=== PATIENT | male | born 1955 | race Caucasian/White ===

== ENCOUNTER → 2023-05-08 11:57 | Outpatient (CLI) | payer MEDICARE, OTHER, SELFPAY ==
--- NOTE | 2023-05-08 | DI.US.S_ITS ---
PROCEDURE: US ABD AORTA ANEURYSM SCREEN INDICATIONS: Cardiac murmur/AAA screening TECHNIQUE: Real time scanning was performed of the aorta and iliac arteries, with image documentation. COMPARISON: None. FINDINGS: Aorta: Proximal aortic diameter measures 2.1 cm. Mid-aorta measures 1.7 cm. Distal aortic diameter is 1.7 cm. Iliac arteries: Right common iliac artery measures 1.2 cm. Left common iliac artery measures 1.3 cm. IMPRESSION: No abdominal aortic or proximal common iliac artery aneurysm. Dictated by: Mike GUERRA Interpreted: Isaias Garnett MD on 05/08/2023 at 14:38 Transcribed by: HILDA on 05/08/2023 at 14:39 Approved by: Isaias Garnett M.D. on 05/08/2023 at 16:43
--- NOTE | 2023-05-08 | DI.ECHO.S_ITS ---
[facility]---------+ [facility] +---------+ : : [address] : [address] : : : : [id number] : : : : Phone: [phone]---------+ Echocardiogram Report + + :Name: YONY OSBORN Study Date: 05/08/2023 Height: 70 in : :[facility] ReadingLocation: Weight: 240 lb : : Gender: Male BSA: 2.3 m2 : :: 1955 Age: 68 yrs BP: 147/98 mmHg: :Reason For Study: Cardiac Murmur : :Ordering Physician: YANA SPEAR : :E Performed By: Miriam Toledo : :Referring: YANA SPEAR E : + + Interpretation Summary 1) Normal left ventricular thickness, size, wall motion, and systolic function (EF 55-60%). 2) Normal right ventricular size and function. 3) Aortic valve is sclerotic but no significant valvular stenoses or regurgitation present. 4) No prior Echo available for comparison. Procedure: A two-dimensional transthoracic echocardiogram with color flow and Doppler was performed. The study quality was technically adequate. There is no prior echocardiogram noted for this patient. The patient was in normal sinus rhythm during the exam. Left Ventricle: The left ventricle is normal in size and wall thickness. The ejection fraction is estimated to be 55-60%. Left ventricular systolic function appears normal without focal wall motion abnormalities. Diastolic parameters suggest probable normal left ventricular diastolic function and normal filling pressures. Right Ventricle: The right ventricle is normal in size and function. Atria: The left atrial size is normal. Right atrial size is normal. There is no Doppler evidence for an interatrial shunt. Mitral Valve: The mitral valve is normal. There is no mitral valve stenosis. There is trace mitral regurgitation. Aortic Valve: The aortic valve is not well visualized. There is mild aortic valve sclerosis. There is no aortic valve stenosis. No aortic regurgitation is present. Tricuspid Valve: The tricuspid valve is normal. There is no tricuspid stenosis. There is trace tricuspid regurgitation. Pulmonic Valve: The pulmonic valve is not well visualized. There is no pulmonic valvular stenosis. There is no pulmonic valvular regurgitation. Great Vessels: The aortic root is normal size. The ascending aorta is at the upper limits of normal in size. The pulmonary artery is normal size. The IVC is of normal diameter and collapses greater than 50% with a sniff. This suggests a low right atrial pressure of 3 mm Hg. Pericardium/ Pleura There is no pericardial effusion. There is no pleural effusion. MMode/2D Measurements & Calculations LVIDd: 5.3 cm LVOT diam: 2.3 cm LVIDs: 4.4 cm Ao root diam: 3.4 cm FS: 17.0 % asc Aorta Diam: 3.6 cm IVSd: 0.90 cm LVPWd: 1.0 cm LV cabrera. diameter/BSA (cm/m^2): 2.3 LV sys. diameter/BSA (cm/m^2): 2.0 LA A2 area: 17.2 cm2 RA long axis: 5.4 cm LA A4 area: 13.1 cm2 RA area: 14.2 cm2 LA length (vol): 5.0 cm RA vol: 31.5 ml LA vol: 38.6 ml RA : 14.0 ml/m2 LA vol index: 17.1 ml/m2 RVD1 (basal): 3.3 cm LVLs ap4: 6.3 cm LVLd ap2: 7.0 cm TAPSE_phl: 2.1 cm LVLs ap2: 5.8 cm Doppler Measurements & Calculations Ao V2 max: 154.5 cm/sec LVOT Max Charles: 127.0 cm/sec Ao V2 mean: 106.0 cm/sec LV V1 max P.5 mmHg Ao max P.0 mmHg LV V1 VTI: 25.7 cm Ao mean P.0 mmHg LANDON(I,D): 3.5 cm2 Ao V2 VTI: 30.9 cm LANDON(V,D): 3.4 cm2 sev ratio: 0.83 LANDON indexed to BSA (cm^2/m^2): 1.5 MV E max charles: 60.3 cm/sec PA V2 max: 132.0 cm/sec MV A max charles: 79.9 cm/sec PA V2 mean: 85.1 cm/sec MV E/A: 0.75 PA mean P.0 mmHg Med Peak E' Charles: 6.2 cm/sec PA pr(Accel): 32.6 mmHg E/E' med: 9.8 Lat Peak E' Charles: 7.0 cm/sec E/E' lat: 8.6 E/e' average: 9.2 MV dec time: 0.20 sec SV(LVOT): 106.8 ml AV VR_phl: 0.82 LANDON(VTI)/BSA_phl: 1.5 Reading Physician:10:24 PM
== END ==
PROVIDERS: PCP Family Medicine; Referring Provider Family Medicine; Visit Provider Family Medicine
DX: I35.8 Other nonrheumatic aortic valve disorders (principal); R01.1 Cardiac murmur, unspecified; Z12.2 Encounter for screening for malignant neoplasm of respiratory organs; Z87.891 Personal history of nicotine dependence
CPT/HCPCS: 76706; 93306

== ENCOUNTER → 2024-05-06 12:34 | Outpatient (CLI) | payer MEDICARE, OTHER, SELFPAY ==
--- NOTE | 2024-05-06 12:35 | DI.US.S_ITS ---
PROCEDURE: US ABDOMEN COMPLETE INDICATIONS: ELEVATED LFTS, FATIGUE TECHNIQUE: Real-time scanning was performed of the abdominal and retroperitoneal organs, with image documentation. COMPARISON: None. FINDINGS: Liver: Measures 19 cm with with echogenicity similar to adjacent right kidney, unremarkable. Main portal vein 15.6 mm in diameter, hepatopetal flow. Note is made of a 1.8 x 2.3 x 2.0 cm cystic structure with posterior acoustic enhancement, possibly multi-septated. Otherwise liver is homogeneous in echogenicity. Gallbladder: No stones sludge, cholelithiasis. Normal gallbladder wall thickness. No pericholecystic fluid. Biliary ducts: Intrahepatic bile ducts are non-dilated. Extrahepatic bile duct caliber measures 4.5 mm. Normal is 6-7 mm or less in diameter, or 10 mm or less post-cholecystectomy. Pancreas: Visualized portions of the pancreas are sonographically normal. Spleen: Spleen is normal in size and homogeneous in echotexture. Kidneys: Kidneys are normal in size and echotexture. Right kidney measures 11.7 cm long; left kidney measures 12.1 cm long. No hydronephrosis or nephrolithiasis. No solid masses. Aorta: Visualized aorta is normal in caliber at less than 3 cm. Iliacs: Proximal common iliac arteries are normal in caliber at less than 2.5 cm. IVC: Intrahepatic inferior vena cava is patent. Miscellaneous: No free abdominal fluid. IMPRESSION: Multiseptated cystic structure of the liver measuring 2.3 cm most likely benign, but if clinical suspicion persists then CT with liver mass protocol may provide additional diagnostic benefit. Dictated by: Vahe Delarosa M.D. on 05/07/2024 at 14:46 Approved by: Vahe Delarosa M.D. on 05/07/2024 at 15:10
== END ==
PROVIDERS: PCP Family Medicine; Referring Provider Physician Assistant; Visit Provider Physician Assistant
DX: K76.9 Liver disease, unspecified (principal); D69.6 Thrombocytopenia, unspecified; R74.8 Abnormal levels of other serum enzymes; R53.81 Other malaise
CPT/HCPCS: 76700

== ENCOUNTER → 2024-09-22 13:25 | Outpatient (CLI) | payer MEDICARE, OTHER, SELFPAY | LOC: WC 13:29 | PROVIDERS: PCP Family Medicine; Referring Provider Physician Assistant; Visit Provider Surgery | DX: L98.492 Non-pressure chronic ulcer of skin of other sites with fat layer exposed (principal); R60.0 Localized edema; E11.622 Type 2 diabetes mellitus with other skin ulcer; D64.9 Anemia, unspecified; I10 Essential (primary) hypertension | CPT/HCPCS: 11042; 87070; 87075; 87077; 87186; 87205; 99203; 99213 ==

== ENCOUNTER → 2024-10-06 13:47 | Outpatient (CLI) | payer MEDICARE, OTHER, SELFPAY | LOC: WC 13:51 | PROVIDERS: PCP Family Medicine; Referring Provider Physician Assistant; Visit Provider Surgery | DX: L98.492 Non-pressure chronic ulcer of skin of other sites with fat layer exposed (principal); R60.0 Localized edema | CPT/HCPCS: 99213 ==

== ENCOUNTER → 2024-10-18 11:16 | Outpatient (CLI) | payer MEDICARE, OTHER, SELFPAY | PROVIDERS: PCP Family Medicine; Referring Provider Physician Assistant; Visit Provider Surgery | DX: L98.492 Non-pressure chronic ulcer of skin of other sites with fat layer exposed (principal); R60.0 Localized edema | CPT/HCPCS: 99212; 99213 ==

== ENCOUNTER → 2024-11-03 15:40 | Outpatient (CLI) | payer MEDICARE, OTHER, SELFPAY ==
--- NOTE | 2024-11-03 | OV.WND_ITS ---
PROGRESS NOTE DETAILS PATIENT NAME: YONY OSBORN PATIENT NUMBER: [id number] CLINICIAN: LEA COOK R.N. PATIENT DATE OF : 1955 PHYSICIAN / [employer]ULTS: TINA BARBA PATIENT SUBJECTIVE CHIEF COMPLAINT THIS INFORMATION WAS OBTAINED FROM THE PATIENT. ELBOW. GENERAL NOTES INFECTIOUS WOUND OF RIGHT ELBOW. ALLERGIES NO KNOWN DRUG ALLERGIES HPI THIS INFORMATION WAS OBTAINED FROM THE PATIENT. THE FOLLOWING HPI ELEMENTS WERE DOCUMENTED FOR THE PATIENT'S WOUND: LOCATION: R ELBOW DURATION: 04/05/24 CONTEXT: INFECTIOUS THE PATIENT IS A 69-YEAR-OLD MALE WITH PRIOR HISTORY OF HAVING TIA'S WHO RETURNS TODAY FOR FOLLOW UP OF NONHEALING ULCER OF THE RIGHT ELBOW THAT 1ST DEVELOPED AFTER HE FELL AND INJURED HIS ELBOW IN MARCH 2024. THE PATIENT IS RECEIVING DRESSING CHANGES WITH IODOFLEX AND COMPLETED A COURSE OF DOXYCYCLINE. THE PATIENT REPORTS THAT THE ULCER STILL HAS MILD TENDERNESS BUT HE HAS NOT NOTED ANY REDNESS OR DRAINAGE NOR HAS HE HAD ANY FEVER OR CHILLS. THE PATIENT REPORTS A GOOD APPETITE AND DENIES HAVING ANY OTHER RECENT CHANGES IN HIS OVERALL HEALTH. HE DOES NOT SMOKE CIGARETTES. THE PATIENT DOES NOT HAVE ANY PRIOR HISTORY OF NONHEALING WOUNDS. ON EXAM TODAY THE ULCER IS HEALED. LABS: 09/22/24: CULTURES GREW STAPHYLOCOCCUS LUGDUNENSIS FAMILY HISTORY THIS INFORMATION WAS OBTAINED FROM THE PATIENT. CANCER- MOTHER, FATHER DIABETES- MOTHER HEART DISEASE- FATHER SOCIAL HISTORY THIS INFORMATION WAS OBTAINED FROM THE PATIENT. FORMER SMOKER ALCOHOL USE MARITAL STATUS: YONY OSBORN [id number] 1955 RETIRED MEDICAL HISTORY THIS INFORMATION WAS OBTAINED FROM THE CHART, PATIENT. 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 YES? COMPLETE ALL QUESTIONS.: YES LOCATION OF CANCER: SKIN SURGICAL HISTORY THIS INFORMATION WAS OBTAINED FROM THE PATIENT. PATIENT HAS A SURGICAL HISTORY OF: SKIN CANCER REMOVAL- REVIEW OF SYSTEMS (ROS) THIS INFORMATION WAS OBTAINED FROM THE PATIENT. COMPLAINTS AND SYMPTOMS PATIENT COM PLAINS OF: MUSCULOSKELETAL: JOINT SWELLING PRIOR WOUND HISTORY: DRAINAGE PATIENT DENIES COM PLAINTS OR SY M PTOM S RELATED TO: CARDIOVASCULAR (CENTRAL): CHEST PAIN, DYSPNEA ON EXERTION CONSTITUTIONAL SYMPTOMS (GENERAL HEALTH): CHILLS, FEVER, LOSS OF APPETITE PRIOR WOUND HISTORY: BLEEDING, ERYTHEMA, MALODOR, PAIN RESPIRATORY: COUGH, SHORTNESS OF BREATH OBJECTIVE YONY OSBORN [id number] 1955 VITALS HEIGHT/LENGTH: 71 IN (180.34 CM), WEIGHT: 490.6 LBS (223 KGS), BMI: 68.4, TEMPERATURE: 97.5 ?F (36.39 ?C), PULSE: 67 BPM, RESPIRATORY RATE: 16 BREATHS/MIN, BLOOD PRESSURE: 117/77 MMHG, PULSE OXIMETRY: 98 %. PHYSICAL EXAM CONSTITUTIONAL: VITAL SIGNS REVIEWED AND NOTED. WELL DEVELOPED, WELL NOURISHED, AND IN NO ACUTE DISTRESS. ALERT AND ORIENTED X3. RESPIRATORY: EVEN RESPIRATIONS WITHOUT USE OF ACCESSORY MUSCLES. NO INTERCOASTAL RETRACTIONS NOTED. EVEN AND NON LABORED RESPIRATION. INTEGUMENTARY (HAIR, SKIN): NO ERYTHEMA. NO SWELLING OR TENDERNESS. SEE WOUND ASSESSMENT. SKIN WARM AND DRY. NO RASHES. NEUROLOGICAL: SENSATION: SYMMETRIC FUNCTION BY INFORMAL OBSERVATION. PSYCHIATRIC: ORIENTATION TO TIME, PLACE AND PERSON: NORMAL AFFECT WITH NORMAL THOUGHT PATTERN. LOWER EXTREMITY ASSESSMENT ASSESSMENT NOT PERFORMED FOR DOCUMENTED REASONS. GENERAL NOTES NO WOUND ON LOWER EXTREMITY. WOUND ASSESSMENT(S) WOUND #1 RIGHT ELBOW IS A CHRONIC FULL THICKNESS INFECTIOUS ACQUIRED ON 04/05/2024 AND HAS RECEIVED AN OUTCOME OF HEALED - NO NEW WOUND(S). INITIAL WOUND ENCOUNTER MEASUREMENTS ARE 0CM LENGTH X 0CM WIDTH WITH NO MEASURABLE DEPTH, WITH AN AREA OF 0 SQ CM.INITIAL WOUND ENCOUNTER PREVIOUS MEASUREMENTS FROM 10/18/2024 ARE 0.1CM LENGTH X 0.1CM WIDTH X 0.1CM DEPTH, WITH AN AREA OF 0.01 SQ CM AND A VOLUME OF 0.001 CUBIC CM. NO TUNNELING HAS BEEN NOTED. NO SINUS TRACT HAS BEEN NOTED. NO UNDERMINING HAS BEEN NOTED. THERE WAS NO DRAINAGE NOTED. THE PATIENT REPORTS A WOUND PAIN OF LEVEL 0/10. THE WOUND MARGIN IS EPITHELIAL RESURFACING WOUND BED HAS NO, GRANULATION, NO SLOUGH, NO ESCHAR, YES EPITHELIALIZATION. THE PERIWOUND SKIN EXHIBITED EDEMA. THE TEMPERATURE OF THE PERIWOUND SKIN IS WNL. PERIWOUND SKIN DOES NOT EXHIBIT SIGNS OR SYMPTOMS OF INFECTION. LOCAL PULSE IS N/A. 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 PLAN ADDITIONAL ORDERS: DRESSING ORDERS APPLY DRESSING(S) AND SECURE WITH: - BORDERED FOAM OR SIMILAR DRESSING TO PROTECT HEALED SKIN FOR THE NEXT 2-3 WEEKS. DRESSING CHANGE FREQUENCY OTHER ORDER: - CHANGE NEEDED, AT LEAST ONCE PER WEEK. FOLLOW-UP APPOINTMENTS DISCHARGE FROM OUTPATIENT SERVICES. SCRIBING ATTESTATION I ATTEST, THE NURSE, THAT I SCRIBED THESE ORDERS FOR THE WOUND CARE PROVIDER. PROVIDER REVIEW AND ATTESTATION: REVIEWED AND EVALUATED LABS. REVIEWED HOSPITAL RECORDS. DISCUSSED THE PLAN OF CARE @ BEDSIDE WITH - THE PATIENT I AGREE AND ATTEST TO THE ABOVE INFORMATION PROVIDED FROM OTHER LICENSED PROFESSIONALS. PLAN OF CARE: 01. ENSURE/ESTABLISH OPTIMAL BLOOD FLOW : - REVIEWED, NOT APPLICABLE 02. ASSESS FOR/TREAT INFECTION : - EVALUATE FOR SIGNS AND SYMPTOMS OF INFECTION AND DOCUMENT FINDINGS. STATUS: COMPLETED DATE: 11/03/2024 - OBTAIN CULTURE AND SENSITIVITY (CANDS) OR TISSUE CULTURE WHEN INFECTION IS SUSPECTED. (NOTE:) CONSIDER REPEATING WHEN WOUND HEALING <40% AFTER 30 DAYS OF WOUND CARE. STATUS: COMPLETED DATE: 11/03/2024 03. DEBRIDE WEEKLY OR MORE OFTEN PRN : - EVALUATE PATIENT IN CENTER WEEKLY TO ASSESS WOUND BED AND MARGINS FOR NEED FOR DEBRIDEMENT. STATUS: COMPLETED DATE: 11/03/2024 04. OPTIMIZE GLUCOSE CONTROL AND NUTRITION : - REVIEWED, NOT APPLICABLE 05. OFFLOADING PLAN : - EVALUATE PLAN FOR OFFLOADING STATUS: COMPLETED DATE: 11/03/2024 06. OPTIMIZE HOST FACTORS: - ASSESS AND REVIEW PATIENT HISTORY FOR WOUND ETIOLOGY, CO-MORBID CONDITIONS, MEDICATION REGIME, AND SMOKING HISTORY. STATUS: COMPLETED DATE: 11/03/2024 07. DRESSING SELECTION : - EVALUATE FOR DRESSING-RELATED FACTORS, SUCH AVAILABILITY, WEAR TIME, ADAPTABILITY AND USE TO BETTER OPTIMIZE WOUND HEALING AND PATIENT COMPLIANCE. STATUS: COMPLETED DATE: 11/03/2024 08. ADVANCED MODALITIES : - EVALUATE FOR APPROPRIATENESS OF CELLULAR TISSUE PRODUCT THERAPY. STATUS: COMPLETED DATE: 11/03/2024 YONY OSBORN [id number] 1955 09. FALL PREVENTION : - COMPLETE FALL ASSESSMENT. STATUS: COMPLETED DATE: 09/22/2024 10. PAIN MANAGEMENT : - COMPLETE PAIN ASSESSMENT STATUS: COMPLETED DATE: 11/03/2024 11. MEASURABLE GOALS FOR WOUND HEALING AND/OR HYPERBARIC OXYGEN THERAPY : - WOUND CLOSURE STATUS: COMPLETED DATE: 11/03/2024 12. DURATION/FREQUENCY OF WOUND CARE VISITS : - 1X WEEKLY FOR 30 DAYS STATUS: COMPLETED DATE: 11/03/2024 ELECTRONIC SIGNATURE(S) SIGNED BY: DATE: TINA BARBA MD 11/03/2024 15:51:00 (PT) ENTERED BY: TINA BARBA MD ON 11/03/2024 13:37:19 (PT) YONY OSBORN [id number] 1955
== END ==
PROVIDERS: PCP Family Medicine; Referring Provider Family Medicine; Visit Provider Surgery
DX: L98.492 Non-pressure chronic ulcer of skin of other sites with fat layer exposed (principal); R60.0 Localized edema; Z86.73 Personal history of transient ischemic attack (TIA), and cerebral infarction without residual deficits
CPT/HCPCS: 99213